=== PATIENT | male | born 1940 | race African-American/Black ===

== ENCOUNTER 2020-01-31 11:38 | Inpatient (IN) ==
[2020-01-31 11:33] LABS: Basophils % 0.4 % (0.0-0.8); Eosinophils % 0.2 % (0.00-10.9); Immature Granulocytes % 0.4 %; Immature Granulocytes Absolute 0.02 #; Lymphocytes # 0.9 10*3/uL (1.4-4.0); Lymphocytes % 19.4 % (21.2-54.2); Mean Corpuscular HGB Conc 33.3 GM/DL (32-36); Mean Corpuscular Volume 78.8 FL (87-102); Mean Platelet Volume 11.1 FL (9.6-12.0); Monocytes % 6.5 % (1.7-12.7); Neutrophils % 73.1 % (38.7-73.9); Platelet Count 142 T/CUMM (130-400); Red Blood Count 4.19 MC/CUMM (3.8-5.5); Red Cell Distribution Width 16.2 % (9.3-17.3); White Blood Count 4.5 T/CUMM (4-12)
[~2020-01-31 11:38] MED LIST: ASPIRIN CHEW 81 MG TABLET PO ONE; BIVALIRUDIN 250 MG VIAL IV ONE; ENOXAPARIN 60 MG/0.6 ML SYRINGE ONE; HEPARIN/NACL 0.9% 2 UNITS/ML 1,500 ML IV ONE; HYDROmorphone 2 MG/1 ML VIAL ONE; LIDOCAINE 1% 20 ML VIAL ONE; MIDAZOLAM 2 MG/2 ML VIAL ONE; TICAGRELOR 90 MG TABLET ONE; TIROFIBAN 5,000 MCG/100 ML PREMIX IV ONE; TIROFIBAN 5,000 MCG/100 ML PREMIX IV SCH
[2020-01-31] MEDS ORDERED: ZALEPLON 5 MG CAPSULE PO PRN (11:51)
[2020-01-31] MEDS ORDERED: ONDANSETRON 4 MG/2 ML VIAL IV PRN (11:51)
[2020-01-31 11:53] LABS: Albumin 2.8 G/DL (3.4-5.0); Bilirubin,Total 0.4 MG/DL (0.2-1.0); Calcium 7.2 MG/DL (8.5-10.1); Osmolality,Calculated 277.8 MOS/KG (273-304); Total Protein 5.6 G/DL (6.4-8.3)
[2020-01-31 11:55] LABS: CKMB % 7.4 %
[2020-01-31 11:57] LABS: Troponin I 5.92 NG/ML (0.00-0.045)
[2020-01-31] MEDS ORDERED: SODIUM CHLORIDE 0.9% 1,000 ML IV SCH (12:00)
[2020-01-31 13:19] LABS: CKMB % 10.4 %
[2020-01-31] MEDS ORDERED: INFLUENZA VIRUS VACCINE 0.5 ML SYRINGE IM ONE (16:13)
[2020-01-31] MEDS: PANTOPRAZOLE 40 MG TABLET PO SCH (16:59)
[2020-01-31 20:22] LABS: CKMB % 12.5 %
[2020-01-31] MEDS: TAMSULOSIN 0.4 MG CAPSULE PO SCH (21:40)
[2020-01-31] MEDS: LATANOPROST 0.005% OPH SOLN 2.5 ML BOTTLE BOTH EYES SCH (21:40)
[2020-01-31] MEDS: ROSUVASTATIN 20 MG TABLET PO SCH (21:40)
[2020-01-31] MEDS: TICAGRELOR 90 MG TABLET PO SCH (21:40)
[2020-02-01 04:56] LABS: Basophils % 0.4 % (0.0-0.8); Eosinophils # 0.1 10*3/uL (0.0-0.87); Eosinophils % 2.5 % (0.00-10.9); Hematocrit 36.5 VOL% (42.0-52.0); Immature Granulocytes % 0.4 %; Immature Granulocytes Absolute 0.02 #; Lymphocytes # 1.6 10*3/uL (1.4-4.0); Lymphocytes % 30.1 % (21.2-54.2); Mean Corpuscular HGB Conc 32.9 GM/DL (32-36); Mean Platelet Volume 11.5 FL (9.6-12.0); Monocytes % 9.8 % (1.7-12.7); Neutrophils % 56.8 % (38.7-73.9); Platelet Count 150 T/CUMM (130-400); Red Blood Count 4.56 MC/CUMM (3.8-5.5); Red Cell Distribution Width 16.5 % (9.3-17.3); White Blood Count 5.2 T/CUMM (4-12)
[2020-02-01 05:14] LABS: Calcium 7.5 MG/DL (8.5-10.1); Osmolality,Calculated 277.5 MOS/KG (273-304)
[2020-02-01 05:27] LABS: Troponin I 97.8 NG/ML (0.00-0.045)
[2020-02-01 05:27] LABS: Troponin I 21.1 NG/ML (0.00-0.045)
[2020-02-01 06:37] LABS: CKMB % 9.1 %; Calcium 7.6 MG/DL (8.5-10.1)
[2020-02-01 06:40] LABS: Troponin I 45.2 NG/ML (0.00-0.045)
[2020-02-01] MEDS ORDERED: METOPROLOL TARTRATE 25 MG TABLET PO SCH (09:00)
[2020-02-01] MEDS: ASPIRIN CHEW 81 MG TABLET PO SCH (09:08)
[2020-02-01] MEDS: PANTOPRAZOLE 40 MG TABLET PO SCH (09:08)
[2020-02-01] MEDS: FINASTERIDE 5 MG TABLET PO SCH (09:08)
[2020-02-01] MEDS: TAMSULOSIN 0.4 MG CAPSULE PO SCH ×2 (09:08→22:50)
[2020-02-01] MEDS: TICAGRELOR 90 MG TABLET PO SCH ×2 (09:08→22:49)
[2020-02-01] MEDS: LATANOPROST 0.005% OPH SOLN 2.5 ML BOTTLE BOTH EYES SCH ×2 (09:09→22:50)
[2020-02-01] MEDS ORDERED: POTASSIUM CHLORIDE 20 MEQ TABLET PO ONE ×2 (21:28→22:30)
[2020-02-01] MEDS: ROSUVASTATIN 20 MG TABLET PO SCH (22:49)
[2020-02-01] MEDS: METOPROLOL TARTRATE 25 MG TABLET PO SCH (22:50)
[2020-02-02 04:29] LABS: Basophils % 0.5 % (0.0-0.8); Eosinophils # 0.2 10*3/uL (0.0-0.87); Eosinophils % 2.5 % (0.00-10.9); Hematocrit 34.6 VOL% (42.0-52.0); Hemoglobin 11.7 GM/DL (14.0-18.0); Immature Granulocytes % 0.3 %; Immature Granulocytes Absolute 0.02 #; Lymphocytes % 31.4 % (21.2-54.2); Mean Corpuscular HGB Conc 33.8 GM/DL (32-36); Mean Corpuscular Volume 77.9 FL (87-102); Mean Platelet Volume 11.6 FL (9.6-12.0); Neutrophils % 52.3 % (38.7-73.9); Platelet Count 148 T/CUMM (130-400); Red Blood Count 4.44 MC/CUMM (3.8-5.5); Red Cell Distribution Width 16.3 % (9.3-17.3); White Blood Count 6.4 T/CUMM (4-12)
[2020-02-02 05:05] LABS: CKMB % 2.6 %; Calcium 7.6 MG/DL (8.5-10.1); Osmolality,Calculated 273.7 MOS/KG (273-304)
[2020-02-02 05:12] LABS: Troponin I 20.2 NG/ML (0.00-0.045)
[2020-02-02] MEDS ORDERED: MAGNESIUM SULF RIDER 2 GM in PREMIX 1 EACH IV ONE (08:10)
[2020-02-02] MEDS: ASPIRIN CHEW 81 MG TABLET PO SCH (09:41)
[2020-02-02] MEDS: FINASTERIDE 5 MG TABLET PO SCH (09:41)
[2020-02-02] MEDS: PANTOPRAZOLE 40 MG TABLET PO SCH (09:41)
[2020-02-02] MEDS: TICAGRELOR 90 MG TABLET PO SCH (09:42)
[2020-02-02] MEDS: METOPROLOL TARTRATE 25 MG TABLET PO SCH (09:42)
[2020-02-02] MEDS: TAMSULOSIN 0.4 MG CAPSULE PO SCH (09:42)
[2020-02-02] MEDS: LATANOPROST 0.005% OPH SOLN 2.5 ML BOTTLE BOTH EYES SCH (09:43)
[2020-02-02 12:06] VITALS: BP 105/64
== END 2020-02-02 13:20 | disposition home or self-care (01) | DRG 247 ==
LOC: N.CL 11:38 → N.ICU 14:28
PROVIDERS: ADMIT Internal Medicine Cardiovascular Disease; ATTEND Internal Medicine Cardiovascular Disease
PROC: CLCCHCL (ICD-10-PCS; 2020-01-31 10:45)